=== PATIENT | male | born 1990 | race African-American/Black ===

== ENCOUNTER 2024-02-20 18:03 | Inpatient (IN) | payer OTHER ==
[2024-02-20 18:41] VITALS: BMI 34.3
[2024-02-20] MEDS ORDERED: guaiFENesin 600 MG TABLET.ER (FP) PO PRN (19:23)
[2024-02-20] MEDS ORDERED: BENZOCAINE/MENTHOL (CHLORASEPTIC ) LOZENGE MM PRN (19:23)
[2024-02-20] MEDS ORDERED: MAGNESIUM HYDROX 2400MG/30ML ORAL SUSPENSION 30 ML CUP PO PRN (19:23)
[2024-02-20] MEDS ORDERED: LOPERAMIDE HCL 2 MG CAPSULE PO PRN (19:23)
[2024-02-20] MEDS ORDERED: NICOTINE POLACRILEX 2 MG LOZENGE BC PRN (19:23)
[2024-02-20] MEDS ORDERED: NALOXONE (NARCAN) HCL 4 MG/0.1 ML SPRAY NS PRN (19:23)
[2024-02-20] MEDS ORDERED: ONDANSETRON *ODT* 4 MG TABLET SL PRN (19:23)
[2024-02-20] MEDS ORDERED: ACETAMINOPHEN 325 MG TABLET (FP) PO PRN (19:23)
[2024-02-20] MEDS ORDERED: BENZONATATE 200 MG CAPSULE PO PRN (19:23)
[2024-02-20] MEDS ORDERED: NICOTINE POLACRILEX 2 MG GUM BUC PRN (19:23)
[2024-02-20] MEDS ORDERED: IBUPROFEN 400 MG TABLET (FP) PO PRN (19:23)
[2024-02-20] MEDS ORDERED: IBUPROFEN 600 MG TABLET (FP) PO PRN (19:23)
[2024-02-20] MEDS ORDERED: POLYETHYLENE GLYCOL (HEALTHYLAX) 3350 17 GM PACKET PO PRN (19:23)
[2024-02-20] MEDS: THIAMINE 100 MG TABLET PO SCH (21:48)
[2024-02-20] MEDS: METHOCARBAMOL 500 MG TABLET PO PRN (21:48)
[2024-02-20] MEDS: BUPRENORPHINE/NALOXONE 8 MG/2 MG FILM PACKET SL SCH (21:48)
[2024-02-20] MEDS: hydrOXYzine PAMOATE 25 MG CAPSULE (FP) PO PRN (21:48)
[2024-02-20] MEDS: MELATONIN 5 MG TABLETS PO SCH (21:48)
[2024-02-20] MEDS: BISMUTH SUBSALICYLATE 524 MG/30 ML PO PRN (23:06)
[2024-02-20] MEDS: MAG HYDROX/AL HYDROX/SIMETH 30 ML UNIT-DOSE CUP PO PRN (23:26)
[2024-02-20] MEDS: DICYCLOMINE HCL 10 MG CAPSULE PO PRN (23:26)
[2024-02-21] MEDS: PRENATAL VITAMINS W/ FOLIC ACID TABLET (FP) PO SCH (09:49)
[2024-02-21 11:12] LABS: HEMATOCRIT 40.8 % (35.4-49); HEMOGLOBIN 13.3 GM/dL (11.7-16.9); MCH 28.5 pg (25.7-33.7); MCHC 32.6 g/dl (32.0-35.9); MEAN CELL VOLUME 87.5 fl (80-96); PLATELET COUNT 318 10^3/uL (134-434); RBC 4.67 M/mm3 (4.00-5.60); RDW 15.1 % (11.9-15.9); WHITE BLOOD COUNT 6.7 K/mm3 (4.0-10.0)
[2024-02-21 11:14] LABS: CHLORIDE 102 mmol/L (98-107); POTASSIUM 4.1 mmol/L (3.5-5.1); SODIUM 137 mmol/L (136-145)
[2024-02-21 11:28] LABS: ALBUMIN 3.6 g/dl (3.4-5.0); ANION GAP 7 mmol/L (4-13); BLOOD UREA NITROGEN 15.3 mg/dL (7-18); CALCIUM 9.1 mg/dL (8.5-10.1); CO2 27 mmol/L (21-32); GLUCOSE,RANDOM 113 mg/dL (74-106)
[2024-02-21 11:31] LABS: CREATININE 1.2 mg/dL (0.55-1.3); SGOT/AST 21 U/L (15-37); SGPT/ALT 13 U/L (13-61)
[2024-02-21 11:32] LABS: BILIRUBIN,TOTAL 0.4 mg/dL (0.2-1); TOT PROT 7.1 g/dl (6.4-8.2)
[2024-02-21 11:33] LABS: ALK PHOS 92 U/L (45-117)
[2024-02-21] MEDS: MIRTAZAPINE 15 MG TABLET (FP) PO SCH (22:52)
[2024-02-22 09:03] VITALS: BP 107/67; PULSE 75; RESP 16; TEMP 97.7
[2024-02-22] MEDS: FLUoxetine HCL 20 MG CAPSULE PO SCH (10:17)
[2024-02-22] MEDS: NALOXONE (NYS OPIOID OVERDOSE PROGRAM) 4 MG/0.1 ML SPRAY NS SCH (12:08)
== END 2024-02-22 11:45 | disposition home or self-care (01) | DRG 773 ==
LOC: YASAS 18:03 → Y3N 21:08
PROVIDERS: ADMIT Allergy & Immunology; ATTEND Surgery
PROC: HZ2ZZZZ Detoxification Services for Substance Abuse Treatment (ICD-10-PCS; principal; 2024-02-20)
DX: F11.20 Opioid dependence, uncomplicated (principal); F10.20 Alcohol dependence, uncomplicated; F14.20 Cocaine dependence, uncomplicated; F12.20 Cannabis dependence, uncomplicated; F17.290 Nicotine dependence, other tobacco product, uncomplicated; F19.24 Other psychoactive substance dependence with psychoactive substance-induced mood disorder; G47.00 Insomnia, unspecified
CPT/HCPCS: 36415; 80053; 80307; 85027; 86780; 93005; 93010

== ENCOUNTER 2024-03-15 18:07 | Emergency (ER) | payer OTHER ==
[2024-03-15 18:19] VITALS: BP 133/83; PULSE 101; RESP 16; TEMP 100.6; BMI 31.2
[2024-03-15] MEDS ORDERED: ACETAMINOPHEN 500 MG TABLET (FP) ONE (19:17)
[2024-03-15] MEDS ORDERED: KETOROLAC TROMETHAMINE 30 MG/1 ML VIAL ONE (19:17)
[2024-03-15] MEDS ORDERED: ONDANSETRON *ODT* 4 MG TABLET ONE (19:18)
[2024-03-15] MEDS: KETOROLAC TROMETHAMINE 30 MG/1 ML VIAL IM ONE (19:23)
[2024-03-15] MEDS: ONDANSETRON *ODT* 4 MG TABLET SL ONE (19:23)
[2024-03-15] MEDS: ACETAMINOPHEN 500 MG TABLET (FP) PO ONE (19:23)
== END 2024-03-15 19:38 | disposition home or self-care (01) ==
LOC: JERFT 18:07 → JER 18:07 → JERFT 19:38
PROC: 3E0133Z Introduction of Anti-inflammatory into Subcutaneous Tissue, Percutaneous Approach (ICD-10-PCS; principal; 2024-03-15)
DX: J10.1 Influenza due to other identified influenza virus with other respiratory manifestations (principal); R05.9 Cough, unspecified; Z20.822 Contact with and (suspected) exposure to COVID-19
CPT/HCPCS: 0241U-QW; 99284-25; Q0162